=== PATIENT | female | born 1960 | race Hispanic/Latino ===

== ENCOUNTER 2018-03-22 09:14 | Inpatient (IN) | payer BC ==
[2018-03-22 10:00] LABS: GRAN # 11.32 (1.4-6.5); GRAN % 87.6 % (50.0-68.0); HEMOGLOBIN 9.3 g/dL (12.0-16.0); LYMPH # 1.2 (1.2-3.4); MEAN CELL VOLUME 95.4 fl (80.0-105.0); MEAN CORPUSCULAR HEMOGLOBIN 30.3 pg (25.0-35.0); MEAN CORPUSCULAR HGB CONC 31.7 g/dl (31.0-37.0); MEAN PLATELET VOLUME 9.5 fl (7.0-11.0); MONO # 0.4 (0.1-0.6); MONO % 3.4 % (1.0-6.0); RBC 3.07 10^6/uL (3.5-6.1); RED CELL DISTRIBUTION WIDTH 12.6 % (11.5-14.5); WHITE BLOOD COUNT 12.9 10^3/uL (4.5-11.0)
[2018-03-22 10:07] LABS: INR 1.06; PARTIAL THROMBOPLASTIN TIME 25.9 Seconds (25.1-36.5); PROTHROMBIN TIME 12.2 SECONDS (9.4-12.5)
--- NOTE | 2018-03-22 10:15 | ED PDOC ---
Arrival/HPI - General Chief Complaint: ENT Problem Time Seen by Provider: 03/22/18 09:37 Historian: Patient - History of Present Illness Narrative History of Present Illness (Text): 03/22/18 11:39 58 y/o female with no significant PMH presents to the ED c/o epistaxis x 6 hours. Pt states her right nare began to bleed large amounts of blood with clots at 4am this morning. Pt attempted to stop the bleeding at home but was unsucc essful. She admits to a syncopal episode where she became lightheaded, pale, with blurry vision. was present and states pt lost consciousness for approx. 30seconds. Takes 81mg ASA daily but no other blood thinners. States she has had a few similar episodes of epistaxis over the last few months but none with syncope or that required hospitalization. Denies fevers, chills, chest pain, palpitations, arm pain, jaw pain, diaphoresis, SOB, cough, headache, back pain, urinary symptoms, abdominal pain, N/V/D, vaginal bleeding. Past Medical History - Provider Review Nursing Documentation Reviewed: Yes - Infectious Disease Hx of Infectious Diseases: None - Reproductive Menopause: Yes - Psychiatric Hx Psychophysiologic Disorder: No Hx Substance Use: No - Anesthesia Hx Anesthesia: No Hx Anesthesia Reactions: No Hx Malignant Hyperthermia: No Family/Social History - Physician Review Nursing Documentation Reviewed: Yes Family/Social History: No Known Family HX Smoking Status: Never Smoked Hx Alcohol Use: No Hx Substance Use: No Allergies/Home Meds Allergies/Adverse Reactions: Allergies No Known Allergies Allergy (Verified 03/22/18 09:26) Home Medications: Home Meds Medication Instructions Recorded Confirmed Aspirin [Adult Low Dose Aspirin EC] 81 mg PO DAILY 03/22/18 03/22/18 Review of Systems - Physician Review All systems were reviewed & negative as marked: Yes - Review of Systems Constitutional: Normal. absent: Fevers Eyes: Vision Changes ENT: Epistaxis Respiratory: Normal. absent: SOB, Cough Cardiovascular: Normal, Syncope, Other (lightheadedness). absent: Chest Pain, Palpitations Gastrointestinal: Normal. absent: Abdominal Pain, Nausea, Vomiting Genitourinary Female: Normal. absent: Dysuria, Frequency, Vaginal Bleeding Musculoskeletal: Normal. absent: Back Pain, Neck Pain Skin: Normal. absent: Rash, Cellulitis Neurological: Normal. absent: Headache Endocrine: Normal Hemo/Lymphatic: Normal Psychiatric: Normal Physical Exam Vital Signs Reviewed: Yes Vital Signs Temp Pulse Resp BP Pulse Ox 03/22/18 09:18 98.8 F 86 18 126/82 100 Temperature: Afebrile Blood Pressure: Normal Pulse: Regular Respiratory Rate: Normal Appearance: Positive for: Well-Appearing, Non-Toxic, Comfortable Pain Distress: None Mental Status: Positive for: Alert and Oriented X 3 - Systems Exam Head: Present: Atraumatic, Normocephalic Pupils: Present: PERRL Extroacular Muscles: Present: EOMI Conjunctiva: Present: Normal Mouth: Present: Moist Mucous Membranes, Normal Tounge, Normal Teeth, Other (small amount of dried blood on roof of mouth) Pharnyx: Present: Other (small amount of blood in posterior pharynx). No: ERYTHEMA, EXUDATE, TONSILS ENLARGED, Peritonsilar Swelling, Uvular Deviation, Muffled/Hoarse Voice, Strider, Soft Palate/Uvular Edema Nose (External): Present: Atraumatic. No: Abrasion, Contusion, Laceration, Lesions Nose (Internal): Present: No Active Bleeding, Moist, Other (right nare with erythema and small amount of red blood at anterior nasal septum). No: Septal Deviation, Septal Hematoma, Epistaxis Neck: Present: Normal Range of Motion. No: MIDLINE TENDERNESS, Paraspinal Tenderness, Lymphadenopathy Respiratory/Chest: Present: Clear to Auscultation, Good Air Exchange. No: Respiratory Distress, Accessory Muscle Use Cardiovascular: Present: Regular Rate and Rhythm, Normal S1, S2, Peripheal Pulses Present. No: Murmurs Abdomen: Present: Normal Bowel Sounds. No: Tenderness, Distention, Peritoneal Signs Back: Present: Normal Inspection Upper Extremity: Present: Normal Inspection, Normal ROM, NORMAL PULSES, Neurovascularly Intact. No: Cyanosis, Edema, Tenderness, Swelling, Temperature Abnormalties, Deformity Lower Extremity: Present: Normal Inspection, NORMAL PULSES, Normal ROM, Neurovascularly Intact. No: Edema, Tenderness, Swelling, Deformity, Temperature Abnormalties Neurological: Present: GCS=15, CN II-XII Intact, Speech Normal, Motor Func Grossly Intact, Normal Sensory Function, Normal Cerebellar Funct, Gait Normal, Memory Normal Skin: Present: Warm, Dry, Normal Color. No: Rashes Lymphatic: No: Cervical Adenopathy Psychiatric: Present: Alert, Oriented x 3, Normal Insight, Normal Concentration, Normal Affect, Normal Mood Medical Decision Making ED Course and Treatment: 03/22/18 09:37 Initial Plan: * CBC * CMP * PT/PTT * Troponin * UA * Head CT * EKG * IVF 03/22/18 10:12 CBC: significant for hgb 9.3 CMP: unremarkable PT/PTT: wnl Troponin: <0.01 03/22/18 11:06 EKG: rate 82; NSR; normal intervals; no ST elevations, no T wave inversions or other signs of ischemia 03/22/18 11:[address]: no intracranial pathology UA: significant for moderate blood; pt denies vaginal bleeding, PMH of hysterectomy CXR: no active disease, read by me On re-evaluation, patient's right nare began to bleed again but was controlled with mild pressure. No active bleeding. Pt reports feeling lightheaded, exam is unchanged. 03/22/18 12:[address] Matthieu Mccabe who accepted patient for admission for observation to remote telemetry with diagnosis of epistaxis, anemia, syncope. Plan of care discussed with patient, who agrees and understands need for overnight observation. Impression: Epistaxis, Anemia, Syncope Plan: Admit to hospital for observation Re-evaluation Time: 11:15 Reassessment Condition: Re-examined, Improved - Lab Interpretations Lab Results: 03/22/18 09:40 Lab Results 03/22/18 09:40: PT 12.2, INR 1.06, APTT 25.9 03/22/18 09:40: WBC 12.9 H, RBC 3.07 L, Hgb 9.3 L, Hct 29.3 L, MCV 95.4, MCH 30.3, MCHC 31.7, RDW 12.6, Plt Count 302, MPV 9.5, Gran % 87.6 H, Lymph % (Auto) 9.0 L, Ogle % (Auto) 3.4, Eos % (Auto) 0.0 L, Baso % (Auto) 0.0, Gran # 11.32 H, Lymph # (Auto) 1.2, Ogle # (Auto) 0.4, Eos # (Auto) 0.0, Baso # (Auto) 0.00 I have reviewed the lab results: Yes - RAD Interpretation Narrative RAD Interpretations (Text): 03/22/2018 11:[address] IMPRESSION: No acute intracranial findings. Dictator: Ron Yang MD Filterer: Radiologist - EKG Interpretation EKG Interpretation (Text): 03/22/18 11:38 Rate 82; NSR; Normal intervals; No ST elevations, No T wave inversions or other signs of ischemia Interpreted by ED Physician: Yes Type: 12 lead EKG Disposition/Present on Arrival - Present on Arrival Any Indicators Present on Arrival: No History of DVT/PE: No History of Uncontrolled Diabetes: No Urinary Catheter: No History of Decub. Ulcer: No History Surgical Site Infection Following: None - Disposition Have Diagnosis and Disposition been Completed?: Yes Diagnosis: Epistaxis, Anemia, Syncope, Hematuria Disposition: HOSPITALIZED Disposition Time: 11:45 Patient Plan: Admission Patient Problems: Current Active Problems Problem Status Onset Epistaxis Acute Anemia Acute Syncope Acute Hematuria Acute Condition: STABLE
[2018-03-22 10:17] LABS: ALB/GLOB RATIO 1.3 (1.1-1.8); ALBUMIN 3.8 g/dL (3.0-4.8); ALT/SGPT 36 U/L (7-56); AST/SGOT 39 U/L (14-36); BLOOD UREA NITROGEN 38 mg/dL (7-21); CALCIUM 9.2 mg/dL (8.4-10.5); GFR NON-AFRICAN AMERICAN > 60
[2018-03-22 10:48] LABS: TROPONIN I < 0.01 ng/mL
--- NOTE | 2018-03-22 11:04 | CT ---
Date of service: 03/22/2018 PROCEDURE: CT HEAD WITHOUT CONTRAST. HISTORY: headache COMPARISON: None available. TECHNIQUE: Axial computed tomography images were obtained through the head/brain without intravenous contrast. Radiation dose: Total exam DLP = 961.68 mGy-cm. This CT exam was performed using one or more of the following dose reduction techniques: Automated exposure control, adjustment of the mA and/or kV according to patient size, and/or use of iterative reconstruction technique. FINDINGS: HEMORRHAGE: No intracranial hemorrhage. BRAIN: No mass effect or edema. Moderate atrophy. VENTRICLES: Unremarkable. No hydrocephalus. CALVARIUM: Unremarkable. PARANASAL SINUSES: Unremarkable as visualized. No significant inflammatory changes. MASTOID AIR CELLS: Unremarkable as visualized. No inflammatory changes. OTHER FINDINGS: None. IMPRESSION: No acute intracranial findings
[2018-03-22] MEDS ORDERED: Sodium Chloride 0.9% 1,000 ML IV STA ×2 (11:05→13:12)
[2018-03-22 12:40] LABS: URINE BILIRUBIN NEGATIVE (NEGATIVE); URINE BLOOD MODERATE (NEGATIVE); URINE GLUCOSE (UA) NEGATIVE (NEGATIVE); URINE LEUKOCYTE ESTERASE NEGATIVE Leu/uL (NEGATIVE); URINE PROTEIN NEGATIVE mg/dL (<30 mg/dL); URINE UROBILINOGEN 0.2 E.U./dL (<1 E.U./dL)
[2018-03-22 12:48] LABS: URINE APPEARANCE CLEAR (CLEAR); URINE COLOR YELLOW (YELLOW)
--- NOTE | 2018-03-22 12:49 | RAD ---
Date of service: 03/22/2018 HISTORY: admit COMPARISON: No prior. FINDINGS: LUNGS: No active pulmonary disease. PLEURA: No significant pleural effusion identified, no pneumothorax apparent. CARDIOVASCULAR: No aortic atherosclerotic calcification present. Normal cardiac size. No pulmonary vascular congestion. OSSEOUS STRUCTURES: No significant abnormalities. VISUALIZED UPPER ABDOMEN: Normal. OTHER FINDINGS: None. IMPRESSION: No active disease.
[2018-03-22 12:51] LABS: URINE RBC 20 - 25 /hpf (0-2); URINE WBC 0 - 2 /hpf (0-6)
[2018-03-22 12:52] LABS: URINE BACTERIA MOD (NEG)
[2018-03-22] MEDS ORDERED: Sodium Chloride 0.9% 1,000 ML IV SCH (13:30)
[2018-03-22 15:34] VITALS: BMI 25.4
[2018-03-22 15:37] LABS: HEMOGLOBIN 8.9 g/dL (12.0-16.0); MEAN CELL VOLUME 94.1 fl (80.0-105.0); MEAN CORPUSCULAR HEMOGLOBIN 30.9 pg (25.0-35.0); MEAN CORPUSCULAR HGB CONC 32.8 g/dl (31.0-37.0); MEAN PLATELET VOLUME 9.2 fl (7.0-11.0); RBC 2.88 10^6/uL (3.5-6.1); RED CELL DISTRIBUTION WIDTH 12.5 % (11.5-14.5); WHITE BLOOD COUNT 9.4 10^3/uL (4.5-11.0)
--- NOTE | 2018-03-22 15:52 | HP ---
HISTORY OF PRESENT ILLNESS: The patient is a 58-year-old woman with no significant past medical history who presented to [facility] ED for evaluation of epistaxis for the last 6 hours. The patient was in her usual state of health until the day of presentation to the ED when she was awakened at 4 a.m. with bleeding from the right aspect of her nose. The patient attempted to stop the bleeding at home with pressure but was unsuccessful and when she noticed some passage of clots, she opted for ED evaluation. Of note, prior to presentation to the ED she had a witnessed syncopal episode which reportedly lasted for approximately 30 seconds. By the time of examination in the ED she was afebrile, hemodynamically stable and was noted to have resolution of her epistaxis. Given her persistent dizziness, she was admitted for continued observation and IV fluid hydration. PAST MEDICAL HISTORY: Hyperlipidemia. PAST SURGICAL HISTORY: None. ALLERGIES: NKDA. MEDICATIONS: Aspirin 81 mg p.o. daily and Lipitor 20 mg p.o. daily. FAMILY HISTORY: Noncontributory. SOCIAL HISTORY: The patient denies any toxic habits. REVIEW OF SYSTEMS: A 12-point review of systems is negative, except as per HPI. PHYSICAL EXAMINATION: VITAL SIGNS: Temperature 98, pulse 78, blood pressure 121/74, respiratory rate 15, oxygen saturation 100% on room air. GENERAL: No apparent distress. HEENT: NC/AT, PERRL, EOMI. No scleral icterus. No conjunctival pallor. Boggy nares bilaterally with dried blood and no evidence of active bleed. NECK: No JVD, no bruits. LUNGS: Clear to auscultation. CARDIOVASCULAR: Regular rate and rhythm. Normal S1 and S2. No murmurs. ABDOMEN: Normoactive bowel sounds. Soft, nontender, nondistended. EXTREMITIES: No edema. NEUROLOGIC: Awake, alert and oriented x 3. No focal motor deficits. LABORATORY DATA: WBC 12.9 with 87% neutrophils, hemoglobin 9.3, hematocrit 29, platelets 302. Sodium 140, potassium 4.4, chloride 107, bicarb 28, BUN 38, creatinine 0.7, glucose 133. IMAGING STUDIES: 1. Chest x-ray demonstrated no active disease. 2. CT of the head without contrast demonstrated no acute pathology. ASSESSMENT: The patient is a 58-year-old woman with a past medical history of hyperlipidemia who presented for evaluation of anterior epistaxis with spontaneous resolution of bleeding and who was subsequently admitted for observation s/p syncopal episode. PLAN: 1. Syncope, etiology likely vasovagal syncope. Neuroimaging reviewed and unremarkable. Continue with IV fluid hydration with normal saline at 100 mL per hour and start Antivert 25 mg p.o. every 8 hours as needed. 2. Anterior epistaxis, resolved. We will check a CBC in the morning and continue to monitor for any recurrence of epistaxis and consult ENT as needed. 3. Hyperlipidemia. Resume Lipitor 20 mg p.o. daily. 4. Prophylaxis. GI prophylaxis not indicated as the patient is eating. DVT prophylaxis not indicated as the patient is ambulatory. CODE STATUS: Full code. Matthieu Mccabe MD JOHNNY
[2018-03-22] MEDS ORDERED: Iohexol 240 (50 ml) ONE ×2 (17:03→19:38)
[2018-03-22 17:06] LABS: HEMOGLOBIN 8.8 g/dL (12.0-16.0); MEAN CELL VOLUME 92.6 fl (80.0-105.0); MEAN CORPUSCULAR HEMOGLOBIN 30.9 pg (25.0-35.0); MEAN CORPUSCULAR HGB CONC 33.3 g/dl (31.0-37.0); MEAN PLATELET VOLUME 9.4 fl (7.0-11.0); RBC 2.85 10^6/uL (3.5-6.1); RED CELL DISTRIBUTION WIDTH 12.5 % (11.5-14.5); WHITE BLOOD COUNT 9.7 10^3/uL (4.5-11.0)
[2018-03-22 17:56] LABS: HEMOGLOBIN 8.7 g/dL (12.0-16.0); MEAN CELL VOLUME 93.3 fl (80.0-105.0); MEAN CORPUSCULAR HEMOGLOBIN 30.9 pg (25.0-35.0); MEAN CORPUSCULAR HGB CONC 33.1 g/dl (31.0-37.0); MEAN PLATELET VOLUME 9.3 fl (7.0-11.0); RBC 2.82 10^6/uL (3.5-6.1); RED CELL DISTRIBUTION WIDTH 12.5 % (11.5-14.5); WHITE BLOOD COUNT 8.9 10^3/uL (4.5-11.0)
[2018-03-22 18:16] LABS: ALB/GLOB RATIO 1.3 (1.1-1.8); ALBUMIN 3.7 g/dL (3.0-4.8); ALT/SGPT 39 U/L (7-56); AST/SGOT 34 U/L (14-36); BLOOD UREA NITROGEN 36 mg/dL (7-21); CALCIUM 9.1 mg/dL (8.4-10.5); GFR NON-AFRICAN AMERICAN > 60
--- NOTE | 2018-03-22 18:20 | CARD ---
APPROVED REPORT Date of service: 03/22/2018 EKG Measurement Heart [id number] <Conclusion> Normal sinus rhythm Prolonged QT Abnormal ECG
[2018-03-22] MEDS ORDERED: DiphenhydrAMINE 50 mg/ml Inj IVP ONE (18:30)
--- NOTE | 2018-03-22 18:40 | CARD ---
APPROVED REPORT Date of service: 03/22/2018 EKG Measurement Heart [id number] <Conclusion> Normal sinus rhythm Normal ECG
--- NOTE | 2018-03-22 20:39 | CP.PCM.PN ---
Subjective - Date & Time of Evaluation Date of Evaluation: 03/22/18 Time of Evaluation: 18:30 - Subjective Subjective: Was called for epistaxis on this patient, bleeding was not stopped despite 3 rhino rockets being placed. when I saw the gross blood, it looked coffee ground, and so I was concerned for esophageal rupture. obtained CXR, aortogram, EKG, and troponin were all ordered, ekg and tropes were normal. CXR from my read did not show a gross tear, awaiting official read. Call was made to two way radio technician to get a stat read on CXR. Consulted Dr. Moore with ENT, who will come and evaluate. Objective - Vital Signs/Intake and Output Vital Signs (last 24 hours): Temp Pulse Resp BP Pulse Ox 98.1 F 79 19 138/87 97 03/22/18 18:00 03/22/18 18:00 03/22/18 18:00 03/22/18 18:00 03/22/18 18:00 - Medications Medications: Current Medications Acetaminophen (Tylenol 325mg Tab) 650 mg PO Q4H PRN PRN Reason: Pain, Mild (1-3) Sodium Chloride (Sodium Chloride 0.9%) 1,000 mls @ 100 mls/hr IV .Q10H STA Stop: 03/22/18 23:11 Last Admin: 03/22/18 14:48 Dose: 100 mls/hr Sodium Chloride (Sodium Chloride 0.9%) 1,000 mls @ 100 mls/hr IV .Q10H KLEBER Meclizine HCl (Antivert) 25 mg PO TID PRN PRN Reason: Dizziness - Labs Labs: 03/22/18 17:45 03/22/18 17:45 PT 12.2 SECONDS (9.4-12.5) 03/22/18 09:40 INR 1.06 03/22/18 09:40 APTT 25.9 Seconds (25.1-36.5) 03/22/18 09:40
[2018-03-22] MEDS ORDERED: Oxymetazoline 0.05% Nasal Spray (30 ml) NS ONE (21:06)
[2018-03-22 21:40] LABS: BASO # 0.01 K/mm3 (0.0-2.0); BASO % 0.1 % (0.0-3.0); GRAN # 8.44 (1.4-6.5); GRAN % 81.8 % (50.0-68.0); HEMOGLOBIN 8.4 g/dL (12.0-16.0); LYMPH # 1.5 (1.2-3.4); LYMPH % 14.7 % (22.0-35.0); MEAN CELL VOLUME 92.3 fl (80.0-105.0); MEAN CORPUSCULAR HEMOGLOBIN 30.7 pg (25.0-35.0); MEAN CORPUSCULAR HGB CONC 33.2 g/dl (31.0-37.0); MEAN PLATELET VOLUME 9.2 fl (7.0-11.0); MONO # 0.4 (0.1-0.6); MONO % 3.4 % (1.0-6.0); RBC 2.74 10^6/uL (3.5-6.1); RED CELL DISTRIBUTION WIDTH 12.7 % (11.5-14.5); WHITE BLOOD COUNT 10.3 10^3/uL (4.5-11.0)
[2018-03-22] MEDS: ceFAZolin 1 gm in NS 1 GM/100 ML BAG IVPB SCH (22:15)
[2018-03-22] MEDS ORDERED: Silver Nitrate Topical - Stick TOP ONE (22:21)
[2018-03-22] MEDS ORDERED: DiphenhydrAMINE 50 mg/ml Inj IVP PRN (22:39)
--- NOTE | 2018-03-22 22:55 | CON ---
DATE: 03/22/2018 HISTORY OF PRESENT ILLNESS: This is a 58-year-old white female admitted to [facility] yesterday with severe epistaxis right-sided and had a Rhino Rocket placed in the nose, but had subsequent bleeding and extrusion of the Rhino Rocket and was called to evaluate the patient. PAST MEDICAL HISTORY: The patient admits to a past medical history of hypertension and atherosclerosis, but states that she has not been treated for it. She denies any previous history of epistaxis in the past. ALLERGIES: THE PATIENT HAS NO KNOWN DRUG ALLERGIES. PHYSICAL EXAMINATION: VITAL SIGNS: Blood pressure upon entering the room was 170/102. HEENT: The patient was noted to have active epistaxis. The Rhino Rocket noted extruded through her nose. Physical examination revealed evidence of posterior epistaxis profuse and the Rhino Rocket was reinserted in the right nasal cavity with cessation of the epistaxis. There was some mild oozing noted in the posterior oropharynx and remainder of the oropharyngeal and ear, nose, and throat exam was unremarkable. IMPRESSION: The patient has right posterior epistaxis and uncontrolled hypertension. The patient will need to have blood pressure controlled with maintenance of the Rhino Rocket in the nose for approximately 48 to 72 hours. Should there be recurrent bleeding, we would recommend endoscopic cauterization and possible sphenopalatine artery ligation. We will need to repeat the hemoglobin and hematocrit as the previous hemoglobin was 8.7 and to assess for necessary type and cross and medical intervention for the hypertension. The patient should be at bedrest and also should be placed on IV antibiotics Ancef 1 g IV every 8 hours. Tremayne Moore DO
[2018-03-23] MEDS: ceFAZolin 1 gm in NS 1 GM/100 ML BAG IVPB SCH ×3 (05:14→22:10)
[2018-03-23 06:16] LABS: HEMOGLOBIN 7.6 g/dL (12.0-16.0); MEAN CELL VOLUME 93.1 fl (80.0-105.0); MEAN CORPUSCULAR HEMOGLOBIN 30.8 pg (25.0-35.0); MEAN PLATELET VOLUME 9.9 fl (7.0-11.0); RBC 2.47 10^6/uL (3.5-6.1); RED CELL DISTRIBUTION WIDTH 12.9 % (11.5-14.5); WHITE BLOOD COUNT 11.8 10^3/uL (4.5-11.0)
[2018-03-23 06:33] LABS: BLOOD UREA NITROGEN 33 mg/dL (7-21); CALCIUM 9.1 mg/dL (8.4-10.5); GFR NON-AFRICAN AMERICAN > 60
--- NOTE | 2018-03-23 07:13 | RAD ---
Date of service: 03/22/2018 HISTORY: epitaxis COMPARISON: 03/22/2018 FINDINGS: LUNGS: No active pulmonary disease. PLEURA: No significant pleural effusion identified, no pneumothorax apparent. CARDIOVASCULAR: No aortic atherosclerotic calcification present. Normal cardiac size. No pulmonary vascular congestion. OSSEOUS STRUCTURES: No significant abnormalities. VISUALIZED UPPER ABDOMEN: Normal. OTHER FINDINGS: None. IMPRESSION: No active disease.
--- NOTE | 2018-03-23 08:13 | CP.PCM.PN ---
Subjective - Date & Time of Evaluation Date of Evaluation: 03/23/18 Time of Evaluation: 08:09 - Subjective Subjective: Surgery Progress Note for Dr. Moore 58F, seen and evaluated at bedside this morning with family. No acute events overnight. Patient resting comfortably in bed. No complaints this morning. Received FFP yesterday. Denies f/c, n/v/d, SOB, CP, or urinary symptoms. Objective - Vital Signs/Intake and Output Vital Signs (last 24 hours): Temp Pulse Resp BP Pulse Ox 98.4 F 86 20 127/89 97 03/22/18 23:58 03/23/18 02:00 03/22/18 23:58 03/22/18 23:58 03/22/18 18:00 Intake and Output: 03/23/18 03/23/18 06:59 18:59 Intake Total 1200 Balance 1200 - Medications Medications: Current Medications Acetaminophen (Tylenol 325mg Tab) 650 mg PO Q4H PRN PRN Reason: Pain, Mild (1-3) Last Admin: 03/22/18 22:44 Dose: 650 mg Diphenhydramine HCl (Benadryl) 25 mg IVP ONCE PRN PRN Reason: Allergy symptoms Cefazolin Sodium (Ancef 1gm In Ns) 1 gm in 100 mls @ 100 mls/hr IVPB Q8 KLEBER Last Admin: 03/23/18 05:14 Dose: 100 mls/hr Meclizine HCl (Antivert) 25 mg PO TID PRN PRN Reason: Dizziness - Labs Labs: 03/23/18 05:30 03/23/18 05:30 PT 12.2 SECONDS (9.4-12.5) 03/22/18 09:40 INR 1.06 03/22/18 09:40 APTT 25.9 Seconds (25.1-36.5) 03/22/18 09:40 - Constitutional Appears: Well, Non-toxic, No Acute Distress - Head Exam Head Exam: ATRAUMATIC, NORMAL INSPECTION, NORMOCEPHALIC - ENT Exam ENT Exam: Mucous Membranes Dry Additional comments: No active bleeding, no visible clots in the pharynx - Respiratory Exam Respiratory Exam: Clear to Ausculation Bilateral, NORMAL BREATHING PATTERN - Cardiovascular Exam Cardiovascular Exam: REGULAR RHYTHM, +S1, +S2. absent: Murmur - GI/Abdominal Exam GI & Abdominal Exam: Soft, Normal Bowel Sounds. absent: Tenderness Assessment and Plan - Assessment and Plan (Free Text) Assessment: 58F w/ right posterior epistaxis s/p Rhino Rocket packing Plan: Rhino rocket packing in place - will remain for next 3 days due to severity of uncontrolled bleeding Patient hbg dropped from 8.4 to 7.6, will need transfusion 2u PRBCs Will continue to monitor for rebleeding episodes Further recommendations per Dr. Oscar Cramer PGY1
--- NOTE | 2018-03-23 08:33 | PN ---
SUBJECTIVE: The patient was seen and examined at bedside on the remote telemetry [place]. The patient has had a difficult past 12 hours after admission for anterior epistaxis which was initially controlled in the ED. On arrival to the medical [place], however, she developed recurrent epistaxis necessitating multiple attempts at hemostasis with Rhino rockets. Hemostasis was eventually achieved by Dr. Moore of ENT and examination disclosed anterior and posterior right-sided epistaxis. Recommendations were made to maintain the Rhino rocket in place for 48-72 hours before reassessment. If she has recurrent bleeding she may require endoscopic cauterization. This morning she denies any further bleeding since replacement of Rhino rocket by Dr. Moore. OBJECTIVE: VITAL SIGNS: Temperature 98.4, pulse 86, blood pressure 127/89, respiratory rate 20, oxygen saturation 99% on room air. GENERAL: No apparent distress. HEENT: PERRL, EOMI. No scleral icterus. No conjunctival pallor. Rhino rocket in place to right nare with dried blood in the nares bilaterally and no active bleed. NECK: No JVD, no bruits. LUNGS: Clear to auscultation. CARDIOVASCULAR: Regular rate and rhythm. Normal S1 and S2. No murmurs. ABDOMEN: Normoactive bowel sounds. Soft, nontender, nondistended. EXTREMITIES: No edema. NEUROLOGIC: Awake, alert and oriented x 3. No focal motor deficits. LABORATORY DATA: WBC 11.8, hemoglobin 7.6, hematocrit 23, platelets 314. Sodium 142, potassium 3.2, chloride 108, bicarb 28, BUN 33, creatinine 0.7, glucose 115. ASSESSMENT: The patient is a 58-year-old woman with a past medical history of hyperlipidemia who presented for evaluation of anterior epistaxis and is now s/p ENT evaluation with reinsertion of Rhino rocket. PLAN: 1. Epistaxis, anterior and posterior, resolved. Input from Dr. Moore greatly appreciated and the patient has not had recurrent bleeding since evaluation by Dr. Moore. She is scheduled for reevaluation with ENT later today to assess for possible need for endoscopic cauterization and or ligation. We will continue to monitor for any recurrence of bleed. 2. Syncope, etiology likely vasovagal syncope. We will discontinue IV fluids and continue to encourage p.o. intake. 3. Hyperlipidemia. Continue Lipitor 20 mg p.o. daily. 4. Prophylaxis. GI prophylaxis not indicated as the patient is eating. DVT prophylaxis not indicated as the patient is ambulatory. CODE STATUS: Full code. Matthieu Mccabe MD MTDTasia
--- NOTE | 2018-03-23 09:52 | CT ---
Date of service: 03/22/2018 PROCEDURE: CT MAXILLOFACIAL BONES WITHOUT CONTRAST HISTORY: Epistaxis COMPARISON: None available. TECHNIQUE: Contiguous axial CT images of the maxillofacial bones were obtained. Coronal and sagittal reformats were generated. Radiation dose: Total exam DLP = 807.42 mGy-cm. This CT exam was performed using one or more of the following dose reduction techniques: Automated exposure control, adjustment of the mA and/or kV according to patient size, and/or use of iterative reconstruction technique. FINDINGS: NASAL BONES: Unremarkable. ORBITS: Unremarkable. PARANASAL SINUSES/ MASTOIDS: Leftward bony nasal septal deviation identified. Limited mucosal inflammatory changes in multiple ethmoid air cells and there is a the left maxillary sinus polyp or cyst. Minimal right sphenoid sinusitis. Tubing is identified entering into the right nares and appears to terminate at the anterior right middle nasal turbinate. Right dion bullosa. MAXILLA: Unremarkable. MANDIBLE/ TEMPOROMANDIBULAR JOINTS: Unremarkable. SKULL BASE: Unremarkable. TEMPORAL BONES: Middle ears and mastoid grossly unremarkable. OTHER FINDINGS: None. IMPRESSION: No fracture or destructive bony lesion appreciable. Limited sinusitis as discussed above with left maxillary sinus polyp or cyst present. Right dion bullosa. Leftward bony nasal septal deviation. Tubing is seen entering to the region of the right middle nasal turbinate terminating at its anterior segment. Concordant preliminary report from [facility] [employer] [facility], 03/22/2018.
--- NOTE | 2018-03-23 10:22 | CT ---
PROCEDURE: CT Angiography Chest, Abdomen and Pelvis with and without intravenous contrast HISTORY: epistaxis COMPARISON: None. TECHNIQUE: Contiguous axial images of the chest, abdomen and pelvis were obtained in the phase of aortic enhancement. A noncontrast enhanced CT of the chest was also obtained to evaluate for possible intramural thrombus. Coronal and sagittal reformats were generated. IV dose administered: Omnipaque 350, 100 cc Radiation dose: Total exam DLP = 914.11 mGy-cm. This CT exam was performed using one or more of the following dose reduction techniques: Automated exposure control, adjustment of the mA and/or kV according to patient size, and/or use of iterative reconstruction technique. FINDINGS: CT ANGIOGRAPHY OF THE CHEST WITH & WITHOUT CONTRAST: AORTA (CHEST AND ABDOMEN): The thoracic and abdominal aorta are unremarkable, without aneurysm, dissection or rupture. No intramural thrombus identified in the thoracic aorta on the non-contrast ct of the chest. The celiac axis, superior mesenteric artery, inferior mesenteric artery and the renal arteries are widely patent. The pelvic arteries are unremarkable. LUNGS: No nodule, mass or consolidation. MEDIASTINUM: Esophageal thickening is questioned and esophagitis or even neoplasm is not excluded. Limited retained oral contrast is identified in the lumen of the esophagus, particularly distally. Normal caliber aorta and pulmonary arterial trunk. No aortic dissection. Mild hepatomegaly suspected. No pulmonary vascular congestion. LYMPH NODES: Unremarkable. PLEURA: Unremarkable. No pneumothorax. No pleural fluid. BONES: Unremarkable. OTHER FINDINGS: None. CT ANGIOGRAPHY OF THE ABDOMEN AND PELVIS WITH CONTRAST: LIVER: 1 cm hyperdense focus is seen at the right lobe liver inferiorly, potentially representing a small benign hemangioma or focal fatty sparing in this patient with mild diffuse fatty infiltration. Follow-up MRI without gadolinium is advised for added characterization. Remainder the liver appears diffusely unremarkable. GALLBLADDER AND BILE DUCTS: Unremarkable. PANCREAS: Unremarkable. No gross lesion or ductal dilatation. SPLEEN: Unremarkable. ADRENALS: Unremarkable. No mass. KIDNEYS AND URETERS: Unremarkable. No hydronephrosis. No solid mass. VASCULATURE: Unremarkable. No aortic aneurysm. No aortic atherosclerotic calcification or mural plaque present. STOMACH AND BOWEL: Evaluation of the gastrointestinal tract is limited due to the lack of oral contrast administration. The stomach is collapsed with mural thickening not excluded at the antrum. Clinically correlate further. No bowel obstruction. APPENDIX: No definite CT evidence to suggest appendicitis. PERITONEUM: Unremarkable. No free fluid. No free air. LYMPH NODES: Unremarkable. No enlarged lymph nodes. BLADDER: Unremarkable. REPRODUCTIVE: Prior hysterectomy questioned. BONES: No acute fracture. OTHER FINDINGS: None. IMPRESSION: 1. No evidence of thoracic or abdominal aortic dissection or aneurysm. 2. No acute infiltrate, pleural or pericardial effusion. Mild cardiomegaly suspected without pulmonary vascular congestion. No significant lymphadenopathy in the chest. 3. Questionable thickening of the esophagus. Clinically correlate further. 4. No small or large bowel obstruction appreciated. Thickening of the stomach is questioned though this is poorly evaluated due to collapse of the stomach and lack of adequate oral contrast administration in this patient. 5. Small hyperdensity right lobe liver inferiorly, potentially reflecting focal fatty sparing. Mild diffuse fatty infiltration is appreciate throughout the liver nevertheless. Consider follow-up MRI without contrast for added characterization. 6. Questionable prior hysterectomy.
[2018-03-23] MEDS ORDERED: Potassium Chloride 20 mEq ER Tab PO ONE (10:58)
[2018-03-24] MEDS: ceFAZolin 1 gm in NS 1 GM/100 ML BAG IVPB SCH ×3 (05:16→21:10)
[2018-03-24 06:43] LABS: HEMOGLOBIN 9.1 g/dL (12.0-16.0); MEAN CELL VOLUME 93.3 fl (80.0-105.0); MEAN CORPUSCULAR HEMOGLOBIN 30.5 pg (25.0-35.0); MEAN CORPUSCULAR HGB CONC 32.7 g/dl (31.0-37.0); MEAN PLATELET VOLUME 9.8 fl (7.0-11.0); RBC 2.98 10^6/uL (3.5-6.1); RED CELL DISTRIBUTION WIDTH 13.1 % (11.5-14.5); WHITE BLOOD COUNT 9.3 10^3/uL (4.5-11.0)
[2018-03-24 07:34] LABS: BLOOD UREA NITROGEN 17 mg/dL (7-21); CALCIUM 9.4 mg/dL (8.4-10.5); GFR NON-AFRICAN AMERICAN > 60
--- NOTE | 2018-03-24 11:40 | PN ---
DATE: 03/24/2018 LOCATION: The patient is in room 371, bed 2. SUBJECTIVE: She has a packing in her right naris and has no complaints. There have been no acute events overnight. The patient developed a low-grade temp after transfusion yesterday. PHYSICAL EXAMINATION: VITAL SIGNS: A temperature of 98.1, pulse rate of 73, blood pressure 156/98, respiratory rate of 20 with O2 saturation of 96% on room air. HEENT: There is a packing in the right naris. NECK: Supple with full range of motion. No bruits are appreciated. LUNGS: Clear to auscultation and percussion bilaterally. HEART: Reveals a regular rate and rhythm. No murmurs, rubs or gallops. ABDOMEN: Benign. NEUROLOGICAL: There are no focal deficits. LABORATORY DATA: Lab values are hemoglobin and hematocrit of 9.1 and 27.8. Chemistry: Potassium of 3.8, BUN of 8 and a random glucose of 112. IMPRESSION: At this time is epistaxis. The patient with a right nasal packing, anemia, syncope. If the patient does not bleed, the ENT person will see the patient this afternoon and possibly remove the packing. If he does, the patient will be discharged home. Deon Mccabe MD
--- NOTE | 2018-03-24 17:14 | CP.PCM.PN ---
Subjective - Date & Time of Evaluation Date of Evaluation: 03/24/18 Time of Evaluation: 17:12 - Subjective Subjective: pt seen and examined pt hemostatic. Denies pain. Packing still in place. Objective - Vital Signs/Intake and Output Vital Signs (last 24 hours): Temp Pulse Resp BP Pulse Ox 98.1 F 84 20 160/92 H 97 03/24/18 16:14 03/24/18 16:14 03/24/18 16:14 03/24/18 16:14 03/24/18 16:14 - Medications Medications: Current Medications Acetaminophen (Tylenol 325mg Tab) 650 mg PO Q4H PRN PRN Reason: Pain, Mild (1-3) Last Admin: 03/23/18 11:34 Dose: 650 mg Acetaminophen (Tylenol 325mg Tab) 650 mg PO Q6H PRN PRN Reason: Fever >100.4 F Last Admin: 03/23/18 16:48 Dose: 650 mg Diphenhydramine HCl (Benadryl) 25 mg IVP ONCE PRN PRN Reason: Allergy symptoms Last Admin: 03/23/18 11:35 Dose: 25 mg Cefazolin Sodium (Ancef 1gm In Ns) 1 gm in 100 mls @ 100 mls/hr IVPB Q8 [facility] Last Admin: 03/24/18 14:34 Dose: 100 mls/hr Meclizine HCl (Antivert) 25 mg PO TID PRN PRN Reason: Dizziness - Labs Labs: 03/24/18 06:00 03/24/18 06:00 PT 12.2 SECONDS (9.4-12.5) 03/22/18 09:40 INR 1.06 03/22/18 09:40 APTT 25.9 Seconds (25.1-36.5) 03/22/18 09:40 - ENT Exam ENT Exam: Mucous Membranes Moist, Normal Exam Additional comments: nose packing right side Dinah: no active bleeding, no erythema - Neck Exam Neck Exam: Normal Inspection - Respiratory Exam Respiratory Exam: NORMAL BREATHING PATTERN Assessment and Plan (1) Anemia Status: Acute (2) Epistaxis Status: Acute (3) Syncope Status: Acute - Assessment and Plan (Free Text) Plan: maintain packing through weekend. antibiotic prophylaxis continuation.
[2018-03-24] MEDS ORDERED: DiphenhydrAMINE 50 mg/ml Inj IVP ONE (22:06)
[2018-03-25] MEDS: ceFAZolin 1 gm in NS 1 GM/100 ML BAG IVPB SCH ×3 (05:00→21:24)
[2018-03-25 07:01] LABS: BLOOD UREA NITROGEN 15 mg/dL (7-21); CALCIUM 9.3 mg/dL (8.4-10.5); GFR NON-AFRICAN AMERICAN > 60
[2018-03-25 07:17] LABS: HEMOGLOBIN 8.8 g/dL (12.0-16.0); MEAN CELL VOLUME 93.3 fl (80.0-105.0); MEAN CORPUSCULAR HEMOGLOBIN 31.1 pg (25.0-35.0); MEAN CORPUSCULAR HGB CONC 33.3 g/dl (31.0-37.0); MEAN PLATELET VOLUME 9.8 fl (7.0-11.0); RBC 2.83 10^6/uL (3.5-6.1); RED CELL DISTRIBUTION WIDTH 12.7 % (11.5-14.5); WHITE BLOOD COUNT 7.9 10^3/uL (4.5-11.0)
[2018-03-25] MEDS ORDERED: Potassium Chloride 20 mEq ER Tab PO ONE (07:57)
--- NOTE | 2018-03-25 10:05 | PN ---
SUBJECTIVE: The patient was seen and examined at bedside in remote telemetry [place]. No acute events overnight. She remains afebrile, hemodynamically stable and with no recurrence of epistaxis for the past 48 hours. Overall she feels okay and offers no complaints. OBJECTIVE: VITAL SIGNS: Temperature 98.9, pulse 78, blood pressure 149/94, respiratory rate 18, oxygen saturation 96% on room air. GENERAL: No apparent distress. HEENT: PERRL, EOMI. No scleral icterus. No conjunctival pallor. Rhino rocket in place to right nare with no active bleed. NECK: No JVD, no bruits. LUNGS: Clear to auscultation. CARDIOVASCULAR: Regular rate and rhythm. Normal S1 and S2. No murmurs. ABDOMEN: Normoactive bowel sounds. Soft, nontender and nondistended. EXTREMITIES: No edema. NEUROLOGIC: Awake, alert and oriented x 3. No focal motor deficits. LABORATORY DATA: WBC 7.9, hemoglobin 8.8, hematocrit 26, platelets 287. Chemistry reviewed and unremarkable with the exception of potassium of 3.4. ASSESSMENT: The patient is a 58-year-old woman with a past medical history of hyperlipidemia who presented for evaluation of anterior epistaxis who is s/p reinsertion of Rhino rocket with no recurrence of active bleed. PLAN: 1. Epistaxis, anterior and posterior, resolved. Input from Dr. Staples is greatly appreciated and arrangements will be made for removal of Rhino rocket in 2 days' time. Continue with prophylactic antibiotics and monitoring CBC daily. 2. Syncope, etiology likely vasovagal in nature. 3. Hyperlipidemia. Continue Lipitor 20 mg p.o. daily. 4. Hypertension. The patient was noted to have slightly elevated blood pressure on numerous occasions during her hospital stay. We will start Lisinopril 10 mg p.o. daily. 5. Prophylaxis. GI prophylaxis not indicated as the patient is eating. DVT prophylaxis is not indicated as the patient is ambulatory. CODE STATUS: Full code. Matthieu Mccabe MD JOHNNY
[2018-03-25 16:35] VITALS: RESP 20; O2SAT 97
[2018-03-26] MEDS: ceFAZolin 1 gm in NS 1 GM/100 ML BAG IVPB SCH ×3 (06:42→21:20)
[2018-03-26 07:32] LABS: HEMOGLOBIN 8.7 g/dL (12.0-16.0); MEAN CELL VOLUME 94.4 fl (80.0-105.0); MEAN CORPUSCULAR HEMOGLOBIN 30.6 pg (25.0-35.0); MEAN CORPUSCULAR HGB CONC 32.5 g/dl (31.0-37.0); MEAN PLATELET VOLUME 9.4 fl (7.0-11.0); RBC 2.84 10^6/uL (3.5-6.1); RED CELL DISTRIBUTION WIDTH 12.7 % (11.5-14.5); WHITE BLOOD COUNT 6.6 10^3/uL (4.5-11.0)
[2018-03-26 07:46] LABS: BLOOD UREA NITROGEN 17 mg/dL (7-21); CALCIUM 9.4 mg/dL (8.4-10.5); GFR NON-AFRICAN AMERICAN > 60
--- NOTE | 2018-03-26 14:20 | CP.PCM.PN ---
Subjective - Date & Time of Evaluation Date of Evaluation: 03/26/18 Time of Evaluation: 14:13 - Subjective Subjective: pt seen and examined. No active bleeding doing well Objective - Vital Signs/Intake and Output Vital Signs (last 24 hours): Temp Pulse Resp BP Pulse Ox 98.4 F 75 20 104/67 97 03/26/18 08:22 03/26/18 13:33 03/26/18 08:22 03/26/18 13:33 03/26/18 08:22 - Medications Medications: Current Medications Acetaminophen (Tylenol 325mg Tab) 650 mg PO Q4H PRN PRN Reason: Pain, Mild (1-3) Last Admin: 03/23/18 11:34 Dose: 650 mg Acetaminophen (Tylenol 325mg Tab) 650 mg PO Q6H PRN PRN Reason: Fever >100.4 F Last Admin: 03/23/18 16:48 Dose: 650 mg Cefazolin Sodium (Ancef 1gm In Ns) 1 gm in 100 mls @ 100 mls/hr IVPB Q8 [facility] Last Admin: 03/26/18 13:39 Dose: 100 mls/hr Lisinopril (Zestril) 10 mg PO DAILY [facility] Last Admin: 03/26/18 13:33 Dose: Not Given - Labs Labs: 03/26/18 07:24 03/26/18 07:24 PT 12.2 SECONDS (9.4-12.5) 03/22/18 09:40 INR 1.06 03/22/18 09:40 APTT 25.9 Seconds (25.1-36.5) 03/22/18 09:40 - Head Exam Head Exam: ATRAUMATIC, NORMAL INSPECTION - Eye Exam Pupil Exam: NORMAL ACCOMODATION - ENT Exam ENT Exam: Mucous Membranes Moist Additional comments: packing removed from right nares. No active bleeding from nose or throat - Neck Exam Neck Exam: Full ROM, Normal Inspection - Respiratory Exam Respiratory Exam: NORMAL BREATHING PATTERN Assessment and Plan (1) Anemia Status: Acute (2) Epistaxis Status: Acute (3) Syncope Status: Acute - Assessment and Plan (Free Text) Plan: ocean saline, no nose blowing, sleep with head elevated. Fu in office as out patient. Packing -rapid rhino left at bedside if bleeding occurs again. 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
--- NOTE | 2018-03-26 18:44 | CP.PCM.PN ---
Subjective - Date & Time of Evaluation Date of Evaluation: 03/26/18 Time of Evaluation: 10:10 - Subjective Subjective: SUBJECTIVE: The patient was seen and examined at bedside in remote telemetry [place]. No acute events overnight. She remains afebrile, hemodynamically stable and with no recurrence of epistaxis. OBJECTIVE: VITAL SIGNS: Temperature 98.4, pulse 66, blood pressure 119/69, respiratory rate 18, oxygen saturation 96% on room air. GENERAL: No apparent distress. HEENT: PERRL, EOMI. No scleral icterus. No conjunctival pallor. Rhino rocket in place to right nare with no active bleed. NECK: No JVD, no bruits. LUNGS: Clear to auscultation. CARDIOVASCULAR: Regular rate and rhythm. Normal S1 and S2. No murmurs. ABDOMEN: Normoactive bowel sounds. Soft, nontender and nondistended. EXTREMITIES: No edema. NEUROLOGIC: Awake, alert and oriented x 3. No focal motor deficits. LABORATORY DATA: CBC with stable Hb. BMP normal. ASSESSMENT: The patient is a 58-year-old woman with a past medical history of hyperlipidemia who presented for evaluation of anterior epistaxis who is s/p reinsertion of Rhino rocket with no recurrence of active bleed. PLAN: 1. Epistaxis, anterior and posterior, resolved. Input from Dr. Staples is greatly appreciated and arrangements will be made for outpatient f/u. Patient likely for d/c home tomorrow. 2. Syncope, etiology likely vasovagal in nature. 3. Hyperlipidemia. Continue Lipitor 20 mg p.o. daily. 4. Hypertension. BP controlled. Continue Lisinopril 10 mg p.o. daily. 5. Prophylaxis. GI prophylaxis not indicated as the patient is eating. DVT prophylaxis is not indicated as the patient is ambulatory. CODE STATUS: Full code. Objective - Vital Signs/Intake and Output Vital Signs (last 24 hours): Temp Pulse Resp BP Pulse Ox 99.6 F 68 20 119/69 97 03/26/18 16:42 03/26/18 16:42 03/26/18 16:42 03/26/18 16:42 03/26/18 16:42 - Medications Medications: Current Medications Acetaminophen (Tylenol 325mg Tab) 650 mg PO Q4H PRN PRN Reason: Pain, Mild (1-3) Last Admin: 03/23/18 11:34 Dose: 650 mg Acetaminophen (Tylenol 325mg Tab) 650 mg PO Q6H PRN PRN Reason: Fever >100.4 F Last Admin: 03/23/18 16:48 Dose: 650 mg Cefazolin Sodium (Ancef 1gm In Ns) 1 gm in 100 mls @ 100 mls/hr IVPB Q8 [facility] Last Admin: 03/26/18 13:39 Dose: 100 mls/hr Lisinopril (Zestril) 10 mg PO DAILY [facility] Last Admin: 03/26/18 13:33 Dose: Not Given Sodium Chloride ([place] Nasal Felt) 0.1 ml NS QID [facility] Last Admin: 03/26/18 18:04 Dose: 1 spray - Labs Labs: 03/26/18 07:24 03/26/18 07:24 PT 12.2 SECONDS (9.4-12.5) 03/22/18 09:40 INR 1.06 03/22/18 09:40 APTT 25.9 Seconds (25.1-36.5) 03/22/18 09:40
[2018-03-27] MEDS ORDERED: DiphenhydrAMINE 50 mg/ml Inj IVP ONE (01:19)
[2018-03-27] MEDS: ceFAZolin 1 gm in NS 1 GM/100 ML BAG IVPB SCH (05:15)
[2018-03-27 06:40] LABS: BLOOD UREA NITROGEN 16 mg/dL (7-21); CALCIUM 9.2 mg/dL (8.4-10.5); GFR NON-AFRICAN AMERICAN > 60
[2018-03-27 06:42] LABS: HEMOGLOBIN 8.4 g/dL (12.0-16.0); MEAN CELL VOLUME 94.8 fl (80.0-105.0); MEAN CORPUSCULAR HGB CONC 32.7 g/dl (31.0-37.0); MEAN PLATELET VOLUME 9.4 fl (7.0-11.0); RBC 2.71 10^6/uL (3.5-6.1); RED CELL DISTRIBUTION WIDTH 12.8 % (11.5-14.5); WHITE BLOOD COUNT 6.1 10^3/uL (4.5-11.0)
[2018-03-27 08:13] VITALS: BP 118/72; PULSE 68; TEMP 98.5
--- NOTE | 2018-03-27 08:47 | PN ---
SUBJECTIVE: The patient was seen and examined at bedside on the remote telemetry [place]. No acute events overnight. She remains afebrile, hemodynamically stable and is doing well status post removal of her Rhino rocket. She denies any further epistaxis, states she feels well and is looking forward to discharge home. OBJECTIVE: VITAL SIGNS: Temperature 98.5, pulse 68, blood pressure 118/72, respiratory rate 20, oxygen saturation 97% on room air. GENERAL: No apparent distress. HEENT: PERRL, EOMI. No scleral icterus. No conjunctival pallor. Nares patent with no evidence of active bleed bilaterally. NECK: No JVD, no bruits. LUNGS: Clear to auscultation. CARDIOVASCULAR: Regular rate and rhythm. Normal S1, S2. No murmurs. ABDOMEN: Normoactive bowel sounds. Soft, nontender, nondistended. EXTREMITIES: No edema. NEUROLOGIC: Awake, alert and oriented x 3. No focal motor deficits. LABORATORY DATA: WBC 6, hemoglobin 8.4, hematocrit 25, platelets 330. Chemistry reviewed and unremarkable. ASSESSMENT: The patient is a 58-year-old woman with a past medical history of hyperlipidemia who presented for evaluation of anterior epistaxis and who was admitted for ENT evaluation and hemostasis who is now cleared for discharge home. PLAN: 1. Epistaxis, anterior and posterior, resolved. Input from Dr. Staples greatly appreciated, and the patient's Rhino rocket has been removed. She has had no further recurrence of epistaxis and is cleared for discharge to home. 2. Syncope, etiology likely vasovagal in nature, resolved. 3. Hyperlipidemia. Continue Lipitor 20 mg p.o. daily. 4. Prophylaxis. GI prophylaxis not indicated as the patient is eating. DVT prophylaxis not indicated as the patient is ambulatory. CODE STATUS: Full code. Matthieu Mccabe MD MTDD
--- NOTE | 2018-03-27 20:43 | DS ---
ADMITTING DIAGNOSIS: Anterior epistaxis and syncope. DISCHARGE DIAGNOSIS: Anterior and posterior epistaxis s/p insertion of Rhino rocket and vasovagal syncope. SECONDARY DIAGNOSES: Hyperlipidemia. CONSULTATIONS: Dr. Staples (ENT). IMAGING STUDIES: 1. Chest x-ray demonstrated no acute pathology. 2. CT of the head without contrast demonstrated no acute pathology. 3. Maxillofacial CT without contrast demonstrated no acute pathology. HISTORY OF PRESENT ILLNESS: The patient is a 58-year-old woman with a past medical history of hyperlipidemia who presented to ED for evaluation of epistaxis for the last 6 hours. She states that she was in her usual state of health until the day of presentation to the ED when she was awakened at 4:00 a.m. with bleeding from her right nare. She attempted to stop the bleeding at home with pressure but was unsuccessful and when she noticed passage of clots, she opted for ED evaluation. Of note, prior to presentation to the ED, she had a witnessed syncopal episode which reportedly lasted for approximately 30 seconds. By the time of examination in the ED, she was afebrile, hemodynamically stable and had resolution of her epistaxis. Given her persistent dizziness, she was admitted for observation and IV fluid hydration. HOSPITAL COURSE: Upon admission to the remote telemetry [place] she was maintained on normal saline at 100 mL per hour. Several hours after admission, she was noted to have recurrent epistaxis. Despite evaluation by the house staff and multiple (unsuccessful) attempts of reinserting the Rhino rocket, she had persistent epistaxis. The patient was evaluated by Dr. Staples of ENT and had successful reinsertion of Rhino rocket with subsequent hemostasis. Recommendations were made to maintain the Rhino rocket in place for the following 48-72 hours. Labs demonstrated a 1.5 gm drop in Hb and she was transfused 1 unit of PRBC's. Thereafter she had no recurrence of epistaxis, remained hemodynamically stable and after removal of the Rhino rocket she was cleared for discharge to home. CONDITION: Good, improved. DISPOSITION: Home. DISCHARGE MEDICATIONS: Lipitor 20 mg p.o. daily. DISCHARGE INSTRUCTIONS: The patient was advised to adhere to safety precautions as per Dr. Staples. She was also advised that if she any recurrence in her symptoms to present to her PMD or to the nearest ED immediately. FOLLOWUP: The patient will follow up with her PMD within 1 week of discharge. The patient to follow up with Dr. Staples as scheduled. Matthieu Mccabe MD J[facility]
== END 2018-03-27 10:20 | disposition home or self-care (01) | DRG 151 ==
LOC: ED 09:14 → ERH 11:56 → 3RSO 13:52 → OBSVTOIN 03-23 09:00
PROVIDERS: ADMIT Student in an Organized Health Care Education/Training Program; ATTEND Student in an Organized Health Care Education/Training Program
PROC: 30233K1 Transfusion of Nonautologous Frozen Plasma into Peripheral Vein, Percutaneous Approach (ICD-10-PCS; principal; 2018-03-22)
PROC: 30233N1 Transfusion of Nonautologous Red Blood Cells into Peripheral Vein, Percutaneous Approach (ICD-10-PCS; 2018-03-23)
DX: R04.0 Epistaxis (principal); D64.9 Anemia, unspecified; E78.5 Hyperlipidemia, unspecified; I10 Essential (primary) hypertension; Z79.82 Long term (current) use of aspirin; R55 Syncope and collapse; I25.10 Atherosclerotic heart disease of native coronary artery without angina pectoris